=== PATIENT | female | born 1970 | race Caucasian/White ===

== ENCOUNTER 2017-06-25 18:17 | Inpatient (IN) | payer BC, OTHER ==
[~2017-06-25] VITALS: Ht 165.1 cm; Wt 72.5 kg
[2017-06-25 19:16] LABS: URINE APPEARANCE CLEAR (CLEAR); URINE BILIRUBIN NEG (NEG); URINE COLOR YELLOW; URINE NITRITE NEG (NEG); URINE PH 6.5 (4.5-7.5); URINE SPECIFIC GRAVITY 1.007 (1.000-1.030); UROBILINOGEN NEG (NEG); ZZUR CULT IF INDIC CLEAN CATCH YES
[2017-06-25 19:22] LABS: MANUAL MICROSCOPIC REQUIRED? NO; REVIEW REQ? YES
[2017-06-25 19:25] LABS: PREG INTERNAL NEGATIVE QC NEG CLEAR BACKGROUND; PREG INTERNAL POSITIVE QC POS CONTROL LINE
[2017-06-25 19:33] LABS: URINE EPITHELIAL CELL AUTO 0-5 /lpf (0-5)
[2017-06-25 19:42] LABS: BASO % 0.1 %; BASO ABS # 0.01 K/uL (0-0.2); COMPLETE YES; EOS % 0.1 %; HEMATOCRIT 39.3 % (37-47); IG% 0.2 %; LYMPH % 23.9 %; LYMPH ABS # 2.21 K/uL (1.2-3.4); MEAN CORPUSCULAR HEMOGLOBIN 27.6 pg (25-34); MEAN CORPUSCULAR HGB CONC 33.6 g/dl (32-36); MEAN PLATELET VOLUME 10.2 fL (7.4-10.4); MONO % 6.3 %; NEUT % 69.4 %; PLATELET COUNT 277 K/uL (130-400); RED BLOOD COUNT 4.79 M/uL (4.2-5.4); WHITE BLOOD COUNT 9.25 K/uL (4.8-10.8)
[2017-06-25 19:44] LABS: BENZODIAZEPINE, URINE NEG (NEG); COCAINE,URINE NEG (NEG); PHENCYCLIDINE, URINE NEG (NEG)
[2017-06-25 20:04] LABS: BUN/CREATININE RATIO 14.8 (10-20); CALCIUM 9.6 mg/dl (8.5-10.1); CREATININE 0.79 mg/dl (0.60-1.20); POTASSIUM 3.2 mmol/L (3.5-5.1)
[2017-06-25 20:09] LABS: ACETAMINOPHEN < 2 ug/ml (10-30)
[2017-06-25 20:15] LABS: THYROID STIMULATING HORMONE 0.763 uIu/ml (0.300-4.500)
--- NOTE | 2017-06-25 20:30 | EMERGENCY ROOM VISIT NOTE ---
History Report prepared by Kayleigh: Braulio Sosa Under the Supervision of: Dr. Raysa Carl M.D. First contact with patient: 19:23 Chief Complaint: MENTAL HEALTH EVALUATION Stated Complaint: MHID History of Present Illness The patient is a 46 year old female who presents to the Emergency Room for a mental health evaluation. Today, the patient was escorted to ER by the [place] police. Per EMS, the patient was found at a [employer] parking lot. She flagged down someone and asked for help. She was rambling about her hacking her computer and her Facebook account while putting drugs in her drinking water. She also believes that her car dealership is messing with her GPS because it took her to the wrong side of a building. She notes that she is upset with her mother because she deleted her phone messages. She also states that she is having trouble with her . She found strange handwritten messages in her 's computer bag. She asked him about them but he was very defensive and aggressive. She believes that he could be cheating on her. Her brother recommended going to the doctor to get a wellness check. Source of History: patient Onset: Recently Position: other (Global) Symptom Intensity: moderate Quality: other (Mental Health Evaluation) Timing: constant Note: She denies any physical symptoms. She denies any suicidal ideation or homicidal ideation. Review of Systems See HPI for pertinent positives & negatives. A total of 10 systems reviewed and were otherwise negative. Past Medical & Surgical Medical Problems: (1) No Known Active Medical Problems Family History Patient reports no known family medical history. Social History Smoking Status: Never Smoker Smokeless Tobacco Use: No Drug Use: none Marital Status: Housing Status: lives with family Current/Historical Medications No Active Prescriptions or Reported Meds Allergies Coded Allergies: No Known Allergies (Unverified , 06/25/17) Physical Exam Vital Signs Date Time Temp Pulse Resp B/P (MAP) Pulse Ox O2 Delivery O2 Flow Rate FiO2 06/26/17 00:27 36.8 110 18 131/88 06/25/17 22:20 109 18 131/88 97 Room Air 06/25/17 20:17 110 18 128/84 97 Room Air 06/25/17 18:17 36.8 110 18 133/87 95 Room Air Physical Exam Vital signs reviewed. General: Well-appearing female, in no significant distress. HEENT: No scleral icterus, PERRLA, neck supple. Atraumatic. Cardiovascular: Regular rate and rhythm, no extra sounds. Pulmonary: Clear to auscultation bilaterally, normal work of breathing. Abdomen: Soft, nontender, nondistended, positive bowel sounds. Musculoskeletal: Atraumatic, no peripheral edema. Neurologic: Patient awake alert and oriented x 3, full strength in all 4 extremities. Cranial nerves 2 through 12 grossly intact. Skin: Warm, dry, no rash Psychologic: Negative SI and HI. Medical Decision & Procedures Laboratory Results 06/25/17 19:25 Red Blood Count 4.79, Mean Corpuscular Volume 82.0, Mean Corpuscular Hemoglobin 27.6, Mean Corpuscular Hemoglobin Concent 33.6, Mean Platelet Volume 10.2, Neutrophils (%) (Auto) 69.4, Lymphocytes (%) (Auto) 23.9, Monocytes (%) (Auto) 6.3, Eosinophils (%) (Auto) 0.1, Basophils (%) (Auto) 0.1, Neutrophils # (Auto) 6.42, Lymphocytes # (Auto) 2.21, Monocytes # (Auto) 0.58, Eosinophils # (Auto) 0.01, Basophils # (Auto) 0.01 06/25/17 19:25 Test 06/25/17 18:41 06/25/17 19:25 Urine Color YELLOW Urine Appearance CLEAR (CLEAR) Urine pH 6.5 (4.5-7.5) Urine Specific [place] 1.007 (1.000-1.030) Urine Protein NEG (NEG) Urine Glucose (UA) NEG (NEG) Urine Ketones TRACE (NEG) Urine Occult Blood 2+ (NEG) Urine Nitrite NEG (NEG) Urine Bilirubin NEG (NEG) Urine Urobilinogen NEG (NEG) Urine Leukocyte Esterase LARGE (NEG) Urine WBC (Auto) >30 /hpf (0-5) Urine RBC (Auto) 0-4 /hpf (0-4) Urine Hyaline Casts (Auto) /lpf (0-5) Urine Epithelial Cells (Auto) 0-5 /lpf (0-5) Urine Bacteria (Auto) 1+ (NEG) Urine Renal Epithelial Cells 0-5 /lpf (0-5) Urine Test NEG (NEG) Urine Opiates Screen NEG (NEG) Urine Methadone, Qualitative NEG (NEG) Urine Barbiturates NEG (NEG) Urine Phencyclidine (PCP) Level NEG (NEG) Ur Amphetamine/Methamphetamine NEG (NEG) MDMA (Ecstasy) Screen NEG (NEG) Urine Benzodiazepines Screen NEG (NEG) Urine Cocaine Metabolite NEG (NEG) Urine Marijuana (THC) NEG (NEG) White Blood Count 9.25 K/uL (4.8-10.8) Red Blood Count 4.79 M/uL (4.2-5.4) Hemoglobin 13.2 g/dL (12.0-16.0) Hematocrit 39.3 % (37-47) Mean Corpuscular Volume 82.0 fL (80-100) Mean Corpuscular Hemoglobin 27.6 pg (25-34) Mean Corpuscular Hemoglobin Concent 33.6 g/dl (32-36) Platelet Count 277 K/uL (130-400) Mean Platelet Volume 10.2 fL (7.4-10.4) Neutrophils (%) (Auto) 69.4 % Lymphocytes (%) (Auto) 23.9 % Monocytes (%) (Auto) 6.3 % Eosinophils (%) (Auto) 0.1 % Basophils (%) (Auto) 0.1 % Neutrophils # (Auto) 6.42 K/uL (1.4-6.5) Lymphocytes # (Auto) 2.21 K/uL (1.2-3.4) Monocytes # (Auto) 0.58 K/uL (0.11-0.59) Eosinophils # (Auto) 0.01 K/uL (0-0.5) Basophils # (Auto) 0.01 K/uL (0-0.2) RDW Standard Deviation 39.2 fL (36.4-46.3) RDW Coefficient of Variation 13.0 % (11.5-14.5) Immature Granulocyte % (Auto) 0.2 % Immature Granulocyte # (Auto) 0.02 K/uL (0.00-0.02) Anion Gap 9.0 mmol/L (3-11) Est Creatinine Clear Calc Drug Dose 80.1 ml/min Estimated GFR () 104.0 Estimated GFR (Non- 89.8 BUN/Creatinine Ratio 14.8 (10-20) Calcium Level 9.6 mg/dl (8.5-10.1) Total Bilirubin 0.5 mg/dl (0.2-1) Aspartate Amino Transf (AST/SGOT) 32 U/L (15-37) Alanine Aminotransferase (ALT/SGPT) 31 U/L (12-78) Alkaline Phosphatase 68 U/L (45-117) Total Protein 7.9 gm/dl (6.4-8.2) Albumin 4.0 gm/dl (3.4-5.0) Globulin 3.9 gm/dl (2.5-4.0) Albumin/Globulin Ratio 1.0 (0.9-2) Thyroid Stimulating Hormone (TSH) 0.763 uIu/ml (0.300-4.500) Salicylates Level < 1.7 mg/dl (2.8-20) Acetaminophen Level < 2 ug/ml (10-30) Ethyl Alcohol mg/dL < 3.0 mg/dl (0-3) Laboratory results per my review. ED Course 1922: Past medical records reviewed. The patient was evaluated in room A7. A complete history and physical examination was performed. 5: Ordered Rocephin Im 1000 mg IM 2318: A 302 petition will be filled out for the patient. She is awaiting definitive placement into a mental health facility. She will be transferred afterward. Medical Decision Differential diagnosis: Etiologies such as mood disorder, infection, hypoglycemia, electrolyte abnormalities, cardiac sources, intracerebral event, toxicologic, neurologic, as well as others were entertained. This patient was evaluated and appeared to be in no significant distress. Patient is distraught and feels that she is being poisoned. She feels as though "someone smarter than she is" is hacking into her social media. She feels her , daughter and sisters are conspiring against her. The patient is not able to state a motivation. He was medically cleared. She is found to have a UTI for which she is refusing antibiotic treatment. The patient is unable to care for herself or make clear decisions. I do not feel she is competent to sign in voluntarily. She has been offered a voluntary admission by mental health staff however she adamantly refuses. She states she was only here so that we could be the "detectives." She refuses any contact with her family members by staff. The patient is currently unable to safety plan. The case was reviewed with Dr. Aly of psychiatry who has accepted the patient to 3 S. A 302 petitioning statement has been submitted by myself as the nursing staff is considered insufficient. A two physician 302 was completed. Medication Reconcilliation Current Medication List: was personally reviewed by me Blood Pressure Screening Patient's blood pressure: Normal blood pressure Blood pressure disposition: Did not require urgent referral Impression Primary Impression: Psychosis Additional Impression: UTI (urinary tract infection) Scribe Attestation The scribe's documentation has been prepared under my direction and personally reviewed by me in its entirety. I confirm that the note above accurately reflects all work, treatment, procedures, and medical decision making performed by me. Departure Information Dispostion Mental Health Acute Care Prescriptions No Active Prescriptions or Reported Meds Referrals No Doctor, Assigned (PCP) Forms HOME CARE DOCUMENTATION FORM, IMPORTANT VISIT INFORMATION Patient Instructions My [facility] Problem Qualifiers
[2017-06-25] MEDS: CEFTRIAXONE SOD 350MG/ML 1 GM VIAL IM ONE ×2 (22:45→22:50)
[2017-06-26] MEDS ORDERED: NURSING VERBAL MED ORDER ONE (00:15)
[2017-06-26 00:27] VITALS: BP 131/88; PULSE 110; TEMP 36.8; Ht 165.1 cm; Wt 72.5 kg
[2017-06-26 02:56] VITALS: O2SAT 98
[2017-06-26] MEDS ORDERED: LORAZEPAM 1 MG TAB PO PRN ×2 (03:30→13:15)
[2017-06-26] MEDS ORDERED: SODIUM CHLORIDE 0.65% NA SOLN 45 ML (OCEAN) PRN (03:30)
[2017-06-26] MEDS ORDERED: ACETAMINOPHEN 325 MG TAB PO PRN (03:30)
[2017-06-26] MEDS ORDERED: ALUMINUM/MAGNESIUM SUSP 30 ML UDC PO PRN (03:30)
[2017-06-26] MEDS ORDERED: BISMUTH SUBSALICYLATE PER ML OMNICELL CHARGE PO PRN (03:30)
[2017-06-26] MEDS ORDERED: MAGNESIUM HYDROXIDE SUSP 30 ML UDC PO PRN (03:30)
[2017-06-26] MEDS ORDERED: hydrOXYzine HCL 25 MG TAB PO PRN ×2 (03:30)
[2017-06-26 06:59] VITALS: BP_SYST 115; BP_SYST 118; BP_DIAS 71; BP_DIAS 78; PULSE 71; PULSE 73; TEMP 36.8
[2017-06-26] MEDS ORDERED: SULFAMETHOXAZOLE/TRIMETHOPRIM DS 800/160MG TAB PO ONE (11:30)
--- NOTE | 2017-06-26 12:10 | Psychiatric History & Physical ---
History Date of Service Jun 26, 2017. Identifying Data Svitlana Trevizo is a 46-year-old female who resides in [place] with her , who was brought to the emergency room by police after having been found in the parking lot of [employer] [facility] distressed, fearful and making paranoid statements. The patient is admitted on a 302 involuntary commitment. Information is gathered from the patient, the electronic medical record, and considered to be reliable. Chief Complaint Paranoia History of Present Illness The patient is a 46-year-old woman, originally from [place], currently residing in [place] with her who is a analytical scientist and [place]. She denies any mental health history or medical concerns. She was brought to the emergency room yesterday by police when she was found in the parking lot outside of [place] [employer] [place], hysterical, and paranoid, making statements about her GPS having been altered and her poisoning her water. Today she is a very difficult historian. She is quite persistent in wanting to present her story in her own time and way. She is mildly tangential but does respond to redirection. She talks about having come to the [place] at the age of 20 or 21 through an arranged marriage. She her , had 2 children by the age of 23. He encouraged her to take additional educational classes but she did not feel that she could do so with 2 small children. She was also raised in a family that discouraged further education for women seeing their role is that of mother and . She feels that she has had a very good relationship with her and they have built a good life together. More recently, she indicates that she has been seeing things in her surroundings that indicate to her that he is having some kind of illicit relationship with one of her cousins. She talks about his cell phone, seeing that contact information for her cousins is on his phone when he tells her he has no contact with him. She cannot reconcile this. She also believes that she has seen Post-it notes in his computer bag with words that indicate to her that he is trying to create a "gap" between she and her family and trying to have that "resonate" with other members of the family. She feels that she has been estranged from her family by virtue of being in this area when all of her [place] relatives are in [place]. She feels that there was a "gap" created between she and her brother after he came to the [facility] to study. She believes these are all magnified currently and extends this paranoia to include her sister, parents and his relatives. 2 days ago, she describes having found the notes in his computer bag, confronting him with them and he became extremely angry and pushed her away. He then proceeded to take her cell phone and record to her computers because he did not want her to continue to upset herself with this electronic information. She felt that that was very unfair. She talked with her brother who encouraged her to get a wellness check from her physician to make sure her mental health was good. She apparently went to her physician's office which may be opposite [address], to see if she could get a walk- in appointment. There were no immediate appointments available and they attempted to give her an appointment for the next day which she refused. She asked to see previous reports from her last visit and upon receiving those, she began to object/become paranoid about the information and wanted to see the physician who wrote it so that she could have it deleted from her record. She would not be more specific than that. According to the emergency department notes, she was brought in by police who were called after the patient flagged down a passerby to say that she was being poisoned by her and that he had hacked her computer. Today she remains quite paranoid without any insight at all, not believing that her thoughts are distorted in any way. After a lengthy conversation, she is willing for me to call her in her presence to let him know she is in the hospital and to invite him in for a meeting. She wants to strictly control the kind of information that is relayed. We called him together, he is willing to come right to the hospital for [place] and will be here at approximately one hour. She would like to meet with him before they meet with the social media campaign manager. At this time a review of psychiatric symptoms is not pursued due to the patient's inability to focus on these and her paranoia. Past Psychiatric History Current OP Treatment: no current treatment Prior OP Treatment: no prior treatment Prior Psych Hospitalizations: none Access to a Gun: No Suicide Attempts: No Past Medication Trials none Allergies Allergies: Coded Allergies: No Known Allergies (Unverified , 06/25/17) Home Medications No Active Prescriptions or Reported Meds Family History Patient reports no known family medical history. 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 Relationship History: Children: 2 adult Spiritual Affiliation: Taoist Legal History: none Review of Systems Constitutional: denies no symptoms reported, denies see HPI, denies chills, denies diaphoresis, denies fever, denies malaise, denies weakness, denies other Eyes: denies: no symptoms, as stated in HPI, eye pain, tearing, itching, redness, discharge, double vision, visual changes, blurred vision, photophobia, other ENT: denies: no symptoms reported, see HPI, ear pain, ear discharge, loss of hearing, tinnitus, nasal pain, nasal congestion, rhinorrhea, epistaxis, sore throat, stidor, throat swelling, mouth pain, mouth swelling, dental pain, gum swelling, other Cardiovascular: denies: no symptoms reported, see HPI, chest pain, chest tightness, chest pressure, diaphoresis, palpitations, syncope, other Respiratory: denies: no symptoms reported, see HPI, cough, orthopnea, short of breath, stridor, wheezing, sputum production, cyanosis, BLOOD, PND, other Genitourinary - Female: reports: other (urinary incontinence) Musculoskeletal: denies no symptoms reported, denies see HPI, denies back pain , denies gout, denies joint pain, denies joint swelling, denies muscle pain, denies muscle stiffness, denies neck pain, denies other Integumentary: denies no symptoms reported, denies see HPI, denies change in color, denies change in hair/nails, denies dryness, denies lesions, denies lumps , denies rash, denies other Neurologic: denies: no symptoms, see HPI, headache, numbness, paresthesias, pre -existing deficit, seizure, tingling, tremors, general weakness, tics, focal weakness, vertigo, lethargy, memory loss, dizziness, other Endocrine: denies: no symptoms, as stated in HPI, cold intolerance, heat intolerance, hair changes, goiter, polydipsia, polyuria, skin changes, other Hematologic / Lymphatic: denies: no symptoms, as stated in HPI, abnormal clotting, adenopathy, anemia, easy bleeding, easy bruising, gums bleeding, petechiae, other Examination Physical Examination Exam performed by Dr. Carl in the emergency room has been reviewed and accepted his medical clearance for our unit Vital Signs Vital Signs Past 12 Hours Date Time Temp Pulse Resp B/P (MAP) Pulse Ox O2 Delivery O2 Flow Rate FiO2 06/26/17 06:59 36.8 71 16 115/78 73 118/71 06/26/17 02:56 74 16 139/77 98 Room Air 06/26/17 00:27 36.8 110 18 131/88 Laboratory Results Last 24 Hours Test 06/25/17 18:41 06/25/17 19:25 Urine Color YELLOW Urine Appearance CLEAR Urine pH 6.5 Urine Specific [place] 1.007 Urine Protein NEG Urine Glucose (UA) NEG Urine Ketones TRACE Urine Occult Blood 2+ Urine Nitrite NEG Urine Bilirubin NEG Urine Urobilinogen NEG Urine Leukocyte Esterase LARGE Urine WBC (Auto) >30 /hpf Urine RBC (Auto) 0-4 /hpf Urine Hyaline Casts (Auto) /lpf Urine Epithelial Cells (Auto) 0-5 /lpf Urine Bacteria (Auto) 1+ Urine Renal Epithelial Cells 0-5 /lpf Urine Test NEG Urine Opiates Screen NEG Urine Methadone, Qualitative NEG Urine Barbiturates NEG Urine Phencyclidine (PCP) Level NEG Ur Amphetamine/Methamphetamine NEG MDMA (Ecstasy) Screen NEG Urine Benzodiazepines Screen NEG Urine Cocaine Metabolite NEG Urine Marijuana (THC) NEG White Blood Count 9.25 K/uL Red Blood Count 4.79 M/uL Hemoglobin 13.2 g/dL Hematocrit 39.3 % Mean Corpuscular Volume 82.0 fL Mean Corpuscular Hemoglobin 27.6 pg Mean Corpuscular Hemoglobin Concent 33.6 g/dl Platelet Count 277 K/uL Mean Platelet Volume 10.2 fL Neutrophils (%) (Auto) 69.4 % Lymphocytes (%) (Auto) 23.9 % Monocytes (%) (Auto) 6.3 % Eosinophils (%) (Auto) 0.1 % Basophils (%) (Auto) 0.1 % Neutrophils # (Auto) 6.42 K/uL Lymphocytes # (Auto) 2.21 K/uL Monocytes # (Auto) 0.58 K/uL Eosinophils # (Auto) 0.01 K/uL Basophils # (Auto) 0.01 K/uL RDW Standard Deviation 39.2 fL RDW Coefficient of Variation 13.0 % Immature Granulocyte % (Auto) 0.2 % Immature Granulocyte # (Auto) 0.02 K/uL Sodium Level 140 mmol/L Potassium Level 3.2 mmol/L Chloride Level 107 mmol/L Carbon Dioxide Level 24 mmol/L Anion Gap 9.0 mmol/L Blood Urea Nitrogen 12 mg/dl Creatinine 0.79 mg/dl Est Creatinine Clear Calc Drug Dose 80.1 ml/min Estimated GFR () 104.0 Estimated GFR (Non- 89.8 BUN/Creatinine Ratio 14.8 Random Glucose 95 mg/dl Calcium Level 9.6 mg/dl Total Bilirubin 0.5 mg/dl Aspartate Amino Transf (AST/SGOT) 32 U/L Alanine Aminotransferase (ALT/SGPT) 31 U/L Alkaline Phosphatase 68 U/L Total Protein 7.9 gm/dl Albumin 4.0 gm/dl Globulin 3.9 gm/dl Albumin/Globulin Ratio 1.0 Thyroid Stimulating Hormone (TSH) 0.763 uIu/ml Salicylates Level < 1.7 mg/dl Acetaminophen Level < 2 ug/ml Ethyl Alcohol mg/dL < 3.0 mg/dl Mental Examination During interview pt is: alert and oriented Appearance: appropriately dressed, appropriately groomed Eye contact is: good Motor behavior is: no abnormal motor movements Speech: other (rapid but not pressured) Affect: other (distressed) Mood is: anxious Thought process: tangential Thought content: reality based without delusions Suicidal thought are: denied Homicidal thoughts are: denied Hallucinations: denies auditory, denies visual Cognition: memory grossly intact, attention grossly intact, language grossly intact Intelligence estimated to be: average Insight: severely impaired Judgement: severely impaired Impression / Recommendations Impression 46-year-old woman, admitted involuntarily with apparent paranoia. Her did arrive on the unit and provided some information to the social media campaign manager that this is first time this has ever happened, that she has never had a mental health history. She is clearly paranoid, misinterpreting stimuli in her environment. She is refusing to take medications saying there is nothing wrong with her thinking that it is her 's problem. We will continue to try to get information from the . At this point she has not aggressive or in any way in need of immediate medications over objection however we will continue to gather information toward the need for further inpatient treatment on a 303 and consider medications over objection at that time. I will order when necessary medications of Risperdal M tab 1 mg 3 times a day in the event she is willing to take something as well as some Ativan 1 mg every 4 hours when necessary for any agitation or anxiety that she may feel. Inventory Assets Strengths: Love of her family, good health Needs: To abide by treatment recommendations Risk Factors Assessment : No /single/: No Higher / Fall in social status: No Access to guns: No Health problems: No Mental Health Diagnoses: No Substance use disorders: No Previous attempt: No Previous psychiatric stay: No Smoker: No Protective Factors Assessment Moravian beliefs: Yes : Yes Responsible for young children: No Employed: No Stable relationships: No Supportive family: Yes Recommendations (1) Psychosis 06/26 -The patient is refusing medications at this time - Here on a 303. Will continue to gather information toward the need for further inpatient treatment on a 303 and consider medications over objection at that time - Every 15 minute checks for safety - Family meeting with her - Encourage participation in groups and individual counseling as tolerated - The patient will need psychiatric follow-up - Risperdal M tab 1 mg 3 times a day when necessary psychosis - Ativan 1 mg every 4 hours when necessary agitation associated with psychosis (2) UTI (urinary tract infection) 06/26 - Start Bactrim DS S one tab twice a day 5 days, we will adjust pending sensitivity - Encourage fluids Has been reviewed with Dr. Sintia morales CPT Code Initial Hospital Care: [id number]
[2017-06-26] MEDS ORDERED: RISPERIDONE ODT 1MG PO PRN (13:15)
[2017-06-26] MEDS: SULFAMETHOXAZOLE/TRIMETHOPRIM DS 800/160MG TAB PO SCH (21:00)
[2017-06-27 06:11] VITALS: BP_SYST 116; BP_SYST 121; BP_DIAS 78; BP_DIAS 80; PULSE 75; PULSE 80; TEMP 36.5
[2017-06-27] MEDS: SULFAMETHOXAZOLE/TRIMETHOPRIM DS 800/160MG TAB PO SCH ×2 (08:50→21:39)
--- NOTE | 2017-06-27 17:59 | Psychiatric Progress Notes ---
Progress Note Date of Service Jun 27, 2017. Chief Complaint "I need my to talk to you, I need my to be able to sleep". Subjective Patient was seen & assessed interval progress reviewed with nursing. Pt exibiting issues with organziation. At firsti ndicated needing [facility] present ot talk to television script writer. Vincent offered to wait till [facility] (as he was expected to come) with pt shortly changing mind and wanting to talk to television script writer at that moment. She indicated that she tlaked to recently (earlier this morning it appears) andshe asked him questions and ready him her thoughts and she felt more reassured that he was committed to her and faithful to her. She is indicating that she can view her issue with the GPS as a glitch in the GPS as opposed to it being hacked. She views her being in the hospital as tied ot a mistake and "that she is not (should not be - most likely) a patient/does not have have mental health concerns." She wants marriage counseling as an outpt. She wants her to remarry her to ensure his faithfulness and to prevent him from going to other women. She appears ot have weariness and probable paranoid thinking towards a certain woman. She describes others in the family that are negative and causing problems and leading her to paranoid thinking with and children encouraging her to disconnect from facebook and those that are negative. near end of afternoon visiting hours television script writer did see and other visitors with pt and interacted with them. is preferring her to be discharge as soon as reasonable and feels that being at home and with loved ones support she would improve. He is feeling that medication treatment is needed She indicates that she cannot sleep in the hospital over her not being here. only 2 hours of sleep last night per staff and meals have fluctuated from 0 to 50% to 100% . She rescinded her JOVON with while also wanting staff and television script writer to talk to him. Review of Systems Constitutional: + problem reported (lack of sleep) Respiratory: + cough, + sputum, + wheezing, + shortness of breath, + dyspnea on exertion, + dyspnea at rest, + hemoptysis, + problem reported Cardiovascular: No chest pain, No orthopnea, No PND, No edema, No claudication , No palpitations, No problem reported Abdomen: No pain, No nausea, No vomiting, No diarrhea, No constipation, No GI bleeding, No problem reported Musculoskeletal: No joint pain, No muscle pain, No swelling, No calf pain, No problem reported Psychiatric: + problem reported (pt denied all symptoms but is having disoregniazation and paranoid thinking) Sleep Information Total Hours of Sleep: 2.00 Meal Information Percent of Breakfast Consumed: 100 Percent of Lunch Consumed: 0 Percent of Dinner Consumed: 50 Mental Status Exam During interview pt is: alert and oriented Appearance: appropriately dressed, appropriately groomed Eye contact is: good Motor behavior is: no abnormal motor movements Speech: other (rapid but not pressured) Affect: other (some distress at times, anxious otherwise) Mood is: anxious Thought process: tangential, perseveration (on not needing to be here and needing and needing reassurance of 's committment to her) Thought content: reality based without delusions (with some paranoid aspects to thought process, pt has imrpoved reality testing and without delusional material) Suicidal thought are: denied Homicidal thoughts are: denied Hallucinations: denies auditory, denies visual Cognition: memory grossly intact, attention grossly intact, language grossly intact Intelligence estimated to be: average Insight: severely impaired Judgement: severely impaired Impression 46-year-old [place] woman, admitted involuntarily with apparent paranoia. Her did arrive on the unit and provided some information to the director of social work that this is first time this has ever happened, that she has never had a mental health history. She is clearly paranoid, misinterpreting stimuli in her environment. She is refusing to take medications saying there is nothing wrong with her thinking that it is her 's problem. We will continue to try to get information from the . At this point she has not aggressive or in any way in need of immediate medications over objection however we will continue to gather information toward the need for further inpatient treatment on a 303 and consider medications over objection at that time. I will order when necessary medications of Risperdal M tab 1 mg 3 times a day in the event she is willing to take something as well as some Ativan 1 mg every 4 hours when necessary for any agitation or anxiety that she may feel. Plan (1) Psychosis 06/26 -The patient is refusing medications at this time - Here on a 303. Will continue to gather information toward the need for further inpatient treatment on a 303 and consider medications over objection at that time - Every 15 minute checks for safety - Family meeting with her - Encourage participation in groups and individual counseling as tolerated - The patient will need psychiatric follow-up - Risperdal M tab 1 mg 3 times a day when necessary psychosis - Ativan 1 mg every 4 hours when necessary agitation associated with psychosis 06/27 - maintained treatment plan, pt presentation is still with disorganization but reality testing is improving and some improvement to organization, does handle family visits well and not expressing delusional concerns about and seeming to respond to family direction well during visit. sleep extremely limited and eating has really varied. exploring need for 303 , however family is feeling comfortable with a discharge plan and would strongly prefer that and pt has not obtained prn risperdal (2) UTI (urinary tract infection) 06/26 - Start Bactrim DS S one tab twice a day 5 days, we will adjust pending sensitivity - Encourage fluids Has been reviewed with Dr. Sintia morales Discharge / Aftercare Planning Primary Care Physician: Name: n/a Therapist: Name: n/a Cosmetics Presser: Name: n/a Visit Code E&M Code: 41758 Inventory Assets Strengths: Love of her family, good health Needs: To abide by treatment recommendations Risk Factors Assessment : No /single/: No Higher / Fall in social status: No Health problems: No Mental Health Diagnoses: No Substance use disorders: No Previous attempt: No Previous psychiatric stay: No Smoker: No Protective Factors Assessment Christian beliefs: Yes : Yes Responsible for young children: No Employed: No Stable relationships: No Supportive family: Yes Data Vital Signs Last 24 Hrs: Date Time Temp Pulse Resp B/P (MAP) Pulse Ox O2 Delivery O2 Flow Rate FiO2 06/27/17 06:11 36.5 75 16 121/78 80 116/80 Meds Administered Last 24 Hrs: Meds Administered (Past 24Hrs) Medications (Trade) Dose Ordered Sig/Day Route Start Time Stop Time Status Last Admin Dose Admin Trimethoprim/ Sulfamethoxazole (Septra Ds 800/ 160MG Tab) 1 tab Q12 PO 06/26/17 21:00 07/01/17 21:00 06/27/17 08:50 1 TAB Trimethoprim/ Sulfamethoxazole (Septra Ds 800/ 160MG Tab) 1 tab 1130 ONCE PO 06/26/17 11:30 06/26/17 11:31 DC 06/26/17 11:32 1 TAB
[2017-06-28 07:05] VITALS: BP_SYST 104; BP_SYST 120; BP_DIAS 75; BP_DIAS 82; PULSE 81; PULSE 98; TEMP 36.4
[2017-06-28] MEDS: SULFAMETHOXAZOLE/TRIMETHOPRIM DS 800/160MG TAB PO SCH ×2 (12:19→20:49)
--- NOTE | 2017-06-28 18:47 | Psychiatric Progress Notes ---
Progress Note Date of Service Jun 28, 2017. Chief Complaint "I am glad to be here, I do not trust my , I am organized, I am not paranoid". Subjective Patient was seen & assessed interval progress reviewed with nursing, assessed pt in morning and spoke to pt with daughter present at her request in late afternoon. Pt in morning was with pressured speech and poro boundaries and exhibiting paranoid delusional thinking, indicating not trusting concerned about being poisoned by her clothes (daughter's company working on infusing medicines into fabric with daughter indicating this as well). Pt wants documentation writer to investigate and car dealership that got the car since she believes something fishy is going on with and also the GPS. She does not believe the GPS issue was a glitch per report this morning. Later in afternoon she became concerned about her Throat turning blue and burning and weary its the Bactrim. Reassurance of nl throat did not settle her down Pt was more calm and contained and without pressured speech when documentation writer spoke to her in front of daughter. Daughter appears to be searching for rationalizing answers for pt's presentation taking likely aggravating factors as the full scope of the issue. and daughter feel that pt would be more organized and calmer at home. Pt wants martial counseling. pt also eating food brought in by family on top of report eating. pt slept well last night Review of Systems Constitutional: No fever, No chills, No sweats, No weight loss, No weakness, No fatigue, No problem reported ENT: + problem reported (burning thorat, cough up some saliva in afternoon ) Respiratory: No cough, No sputum, No wheezing, No shortness of breath, No dyspnea on exertion, No dyspnea at rest, No hemoptysis, No problem reported Cardiovascular: No chest pain, No orthopnea, No PND, No edema, No claudication , No palpitations, No problem reported Abdomen: No pain, No nausea, No vomiting, No diarrhea, No constipation, No GI bleeding, No problem reported Musculoskeletal: No joint pain, No muscle pain, No swelling, No calf pain, No problem reported Medication Side Effects: being treated for UTI Sleep Information Total Hours of Sleep: 7.75 Meal Information Percent of Breakfast Consumed: 100 Percent of Lunch Consumed: 0 Percent of Dinner Consumed: 100 Mental Status Exam During interview pt is: alert and oriented Appearance: appropriately dressed, appropriately groomed Eye contact is: good Motor behavior is: no abnormal motor movements Speech: other (rapid but not pressured) Affect: other (some distress at times, anxious otherwise) Mood is: anxious Thought process: tangential, perseveration (on not needing to be here and needing and needing reassurance of 's committment to her) Thought content: reality based without delusions (with some paranoid aspects to thought process, pt has imrpoved reality testing and without delusional material) Suicidal thought are: denied Homicidal thoughts are: denied Hallucinations: denies auditory, denies visual Cognition: memory grossly intact, attention grossly intact, language grossly intact Intelligence estimated to be: average Insight: severely impaired Judgement: severely impaired Impression 46-year-old woman, admitted involuntarily with apparent paranoia. Her did arrive on the unit and provided some information to the school social worker that this is first time this has ever happened, that she has never had a mental health history. She is clearly paranoid, misinterpreting stimuli in her environment. She is refusing to take medications saying there is nothing wrong with her thinking that it is her 's problem. We will continue to try to get information from the . At this point she has not aggressive or in any way in need of immediate medications over objection however we will continue to gather information toward the need for further inpatient treatment on a 303 and consider medications over objection at that time. I will order when necessary medications of Risperdal M tab 1 mg 3 times a day in the event she is willing to take something as well as some Ativan 1 mg every 4 hours when necessary for any agitation or anxiety that she may feel. Plan (1) Psychosis 06/26 -The patient is refusing medications at this time - Here on a 303. Will continue to gather information toward the need for further inpatient treatment on a 303 and consider medications over objection at that time - Every 15 minute checks for safety - Family meeting with her - Encourage participation in groups and individual counseling as tolerated - The patient will need psychiatric follow-up - Risperdal M tab 1 mg 3 times a day when necessary psychosis - Ativan 1 mg every 4 hours when necessary agitation associated with psychosis 06/27 - maintained treatment plan, pt presentation is still with disorganization but reality testing is improving and some improvement to organization, does handle family visits well and not expressing delusional concerns about and seeming to respond to family direction well during visit. sleep extremely limited and eating has really varied. exploring need for 303 , however family is feeling comfortable with a discharge plan and would strongly prefer that and pt has not obtained prn risperdal 06/28 - family continues to aim for a quick discharge and that they feel pt is appropriate for discharge despite pt's various paranoid concerns that pt is lacking insight to. pt behavior more settled and calmer with family present then when on unit without family. more concerns about being poisoned and about needed to be investigated today, states does not trust hsuband to documentation writer and to daughter however behaviors and presentation appropriate when on unit . (2) UTI (urinary tract infection) 06/26 - Start Bactrim DS S one tab twice a day 5 days, we will adjust pending sensitivity - Encourage fluids Has been reviewed with Dr. Sintia morales Discharge / Aftercare Planning Primary Care Physician: Name: n/a Therapist: Name: n/a Concrete Block Layer: Name: n/a Visit Code E&M Code: 77830 Inventory Assets Strengths: Love of her family, good health Needs: To abide by treatment recommendations Risk Factors Assessment : No /single/: No Higher / Fall in social status: No Health problems: No Mental Health Diagnoses: No Substance use disorders: No Previous attempt: No Previous psychiatric stay: No Smoker: No Protective Factors Assessment Roman Catholic beliefs: Yes : Yes Responsible for young children: No Employed: No Stable relationships: No Supportive family: Yes Data Vital Signs Last 24 Hrs: Date Time Temp Pulse Resp B/P (MAP) Pulse Ox O2 Delivery O2 Flow Rate FiO2 06/28/17 07:05 36.4 81 16 120/82 98 104/75 Meds Administered Last 24 Hrs: Meds Administered (Past 24Hrs) Medications (Trade) Dose Ordered Sig/Day Route Start Time Stop Time Status Last Admin Dose Admin Trimethoprim/ Sulfamethoxazole (Septra Ds 800/ 160MG Tab) 1 tab Q12 PO 06/26/17 21:00 07/01/17 21:00 06/28/17 12:19 1 TAB
[2017-06-29 06:55] VITALS: BP_SYST 102; BP_SYST 106; BP_DIAS 57; BP_DIAS 64; PULSE 84; PULSE 88; TEMP 36.8
[2017-06-29] MEDS: SULFAMETHOXAZOLE/TRIMETHOPRIM DS 800/160MG TAB PO SCH (08:37)
--- NOTE | 2017-06-29 10:59 | Discharge Instructions ---
Discharge Information Report Includes Report will include the: Discharge Instructions & Summary Admission Admission Date / Time: Jun 26, 2017 at 00:11 Reason for Admission: Unspecified Psychosis Discharge Discharge Diagnosis / Problem: Paranoia Condition at Discharge: Fair Discharge Goals Goal(s): Decrease discomfort, Improve disease control Activity Recommendations Activity Limitations: resume your previous activity . Instructions / Follow-Up Instructions / Follow-Up . SPECIAL CARE INSTRUCTIONS: 1. Follow through with your scheduled aftercare appointments. If unable to keep an appointment, please call to reschedule. 2. Take your medication only as prescribed. Medication should not be changed or stopped without the approval of your doctor. In the event of worsening symptoms or concerns about side effects, contact your doctor immediately. 3. Utilize new healthy coping skills, anger management skills, and stress management skills learned during your hospitalization. Journal feelings and process them with a support person. Identify stressors or situations that may result in relapse, deterioration or inappropriate behaviors and develop a plan to deal with those issues. 4. If your coping skills are ineffective and you are in crisis, contact your outpatient providers for direction. If unable to reach your providers, please call the CAN HELP LINE AT or go to the closest Emergency Room. 5. Avoid alcohol and un-prescribed drugs. 6. You have been provided with the Mental Health Advance Directives Pamphlet for your review. AFTERCARE APPOINTMENTS: * Please call your insurance company prior to your scheduled appointment to confirm your aftercare providers are covered. Take your insurance information to your appointments. . Discharge / Aftercare Planning Primary Care Physician: Name: states that she does not have a PCP Psychiatrist: Name: Refusing aftercare Therapist: Name Of Therapist: [facility], [address] [place] [address], [address] Date of Appointment: Jul 13, 2017 Time of Appointment: 6pm Gear Tester: Name: n/a . Follow-Up Care Plan for Follow-Up Care: The patient will see therapist Fabio Eugene and is refusing to see a psychiatrist Current Hospital Diet Patient's current hospital diet: Regular Diet, Vegetarian Diet Discharge Diet Recommended Diet: Regular Diet Procedures Procedures Performed: No Pending Studies Pending Studies at Discharge: No Medical Emergencies . Who to Call and When: Medical Emergencies: For questions or emergencies related to your hospital stay, please contact the Inpatient Behavioral Health Unit at [phone]. A fashion illustrator is on-call 27/04 for the Behavioral Health Unit for emergencies At any time you feel your situation is an emergency, you may also call 911 immediately. . Non-Emergent Contact Non-Emergency issues call your: Primary Care Provider, Psychiatrist, Therapist Past History Medical & Surgical History: (1) UTI (urinary tract infection) Advance Directives Existing Advance Directive: No Do You Have an Existing Mental: No Existing Living Will: No Existing Power of Reinforcing Metal Worker: No The Person Making Decisions: unknown- pt too psychotic to answer Advance Directives Info Given: To Pt/S.O. Advance Directives Reason: Declines as Mental Health Visit. Discharge Summary Admission HPI Per the Admitting provider: The patient is a 46-year-old woman, originally from [facility], currently residing in [place] with her who is a product development scientist and [place]. She denies any mental health history or medical concerns. She was brought to the emergency room yesterday by police when she was found in the parking lot outside of [place], hysterical, and paranoid, making statements about her GPS having been altered and her poisoning her water. Today she is a very difficult historian. She is quite persistent in wanting to present her story in her own time and way. She is mildly tangential but does respond to redirection. She talks about having come to the [place] at the age of 20 or 21 through an arranged marriage. She her , had 2 children by the age of 23. He encouraged her to take additional educational classes but she did not feel that she could do so with 2 small children. She was also raised in a family that discouraged further education for women seeing their role is that of mother and . She feels that she has had a very good relationship with her and they have built a good life together. More recently, she indicates that she has been seeing things in her surroundings that indicate to her that he is having some kind of illicit relationship with one of her cousins. She talks about his cell phone, seeing that contact information for her cousins is on his phone when he tells her he has no contact with him. She cannot reconcile this. She also believes that she has seen Post-it notes in his computer bag with words that indicate to her that he is trying to create a "gap" between she and her family and trying to have that "resonate" with other members of the family. She feels that she has been estranged from her family by virtue of being in this area when all of her [place] relatives are in [place]. She feels that there was a "gap" created between she and her brother after he came to the [facility] to study. She believes these are all magnified currently and extends this paranoia to include her sister, parents and his relatives. 2 days ago, she describes having found the notes in his computer bag, confronting him with them and he became extremely angry and pushed her away. He then proceeded to take her cell phone and record to her computers because he did not want her to continue to upset herself with this electronic information. She felt that that was very unfair. She talked with her brother who encouraged her to get a wellness check from her physician to make sure her mental health was good. She apparently went to her physician's office which may be opposite [address], to see if she could get a walk- in appointment. There were no immediate appointments available and they attempted to give her an appointment for the next day which she refused. She asked to see previous reports from her last visit and upon receiving those, she began to object/become paranoid about the information and wanted to see the physician who wrote it so that she could have it deleted from her record. She would not be more specific than that. According to the emergency department notes, she was brought in by police who were called after the patient flagged down a passerby to say that she was being poisoned by her and that he had hacked her computer. Today she remains quite paranoid without any insight at all, not believing that her thoughts are distorted in any way. After a lengthy conversation, she is willing for me to call her in her presence to let him know she is in the hospital and to invite him in for a meeting. She wants to strictly control the kind of information that is relayed. We called him together, he is willing to come right to the hospital for [place] and will be here at approximately one hour. She would like to meet with him before they meet with the social insurance administrator. At this time a review of psychiatric symptoms is not pursued due to the patient's inability to focus on these and her paranoia. Hospital Course (1) Psychosis 06/26 -The patient is refusing medications at this time - Here on a 303. Will continue to gather information toward the need for further inpatient treatment on a 303 and consider medications over objection at that time - Every 15 minute checks for safety - Family meeting with her - Encourage participation in groups and individual counseling as tolerated - The patient will need psychiatric follow-up - Risperdal M tab 1 mg 3 times a day when necessary psychosis - Ativan 1 mg every 4 hours when necessary agitation associated with psychosis 06/27 - maintained treatment plan, pt presentation is still with disorganization but reality testing is improving and some improvement to organization, does handle family visits well and not expressing delusional concerns about and seeming to respond to family direction well during visit. sleep extremely limited and eating has really varied. exploring need for 303 , however family is feeling comfortable with a discharge plan and would strongly prefer that and pt has not obtained prn risperdal 06/28 - family continues to aim for a quick discharge and that they feel pt is appropriate for discharge despite pt's various paranoid concerns that pt is lacking insight to. pt behavior more settled and calmer with family present then when on unit without family. more concerns about being poisoned and about needed to be investigated today, states does not trust hsuband to mortgage underwriter and to daughter however behaviors and presentation appropriate when on unit . (2) UTI (urinary tract infection) 06/26 - Start Bactrim DS S one tab twice a day 5 days, we will adjust pending sensitivity - Encourage fluids Risk Factors Assessment : No /single/: No Higher / Fall in social status: No Health problems: No Mental Health Diagnoses: No Substance use disorders: No Previous attempt: No Previous psychiatric stay: No Smoker: No Protective Factors Assessment Bahai beliefs: Yes : Yes Responsible for young children: No Employed: No Stable relationships: No Supportive family: Yes Day of Discharge Assessment COURSE OF HOSPITALIZATION: The patient has been on our unit for more than 3 days. She was admitted on an involuntary commitment after flagging down someone in a parking lot to report that her GPS is been tampered with and her was poisoning her water. She was brought to the emergency room by police. The patient refused medications throughout her stay. She initially refused to allow contact with her but eventually relented and signed a release of information. He came to visit on the first day and she continued to voice paranoid statements feeling that he had manipulated information on the Internet and that he was having an affair with one of her cousins in [place]. He however did not want her to be in the hospital nor did he agree with medications and had wanted to take her home that very day. We informed him that we needed several days of observation before we can make any judgments about discharge. The patient's and their daughter visited over the weekend. To staff, she continued to voice paranoid ideation, refusing to eat hospital food, only that which was brought in by her family, and continuing to believe that her GPS been tampered with and that her was having an affair. I spoken with the patient's this morning. He says that by Thursday evening, last evening, she was not voicing any delusions or concerns. He says that she admitted to them that she had a "nervous breakdown" and that had made her thinking confused. He felt that she was getting back to baseline and he continued to want discharge and did not support the idea of medications. He has spoken with his boss and will be taking some time off from work in order to be with her. She was not reasonable when the social insurance administrator attempted to meet with them several days ago as she just continued to persistently arti anybody who would listen that her perceptions were correct and that her husbands were incorrect. Although there is another day and a half left on her involuntary commitment, neither the patient nor her family are in favor of ongoing involuntary commitment and their entire family is against the use of antipsychotic medications. We do believe that she would benefit from these as even today she continues to voice paranoid thoughts, misinterpreting stimuli in her environment that lead her to believe that her is having an affair and that information on the Internet is being manipulated. I have told her clearly that I am recommending she have follow-up with psychiatrist which she initially refuses but then agrees to that saying that she will do that with her so that she has somebody who can help her to convince him that he is wrong. She is worried about having any of this information in writing and repeatedly asks that things be documented in certain ways or not documented at all. I have been careful to repeatedly inform her that if she has fearful concerns in the future that she can come to the emergency room for assistance. She then becomes paranoid that her will be able to have her involuntarily committed by simply making a statement. I did attempt to give her reassurance that this is not the way the mental health procedures act works. Additionally, I remind her that her had nothing to do with her coming here and being committed as he didn't even know where she was. She remains paranoid that he somehow had contacted the police prior to events leading to her hospitalization in order to prime them that she should not be listen to. I again recommended to the patient that she try some antipsychotic medications which she again refuses and the supports her in this. DAY OF DISCHARGE ASSESSMENT: The patient remains paranoid today, insisting that her interpretations of events and objects is correct in that her is still trying to manipulate her. That having been said, please see above conversation, she is refusing medications, does not believe she needs to be here and that she is very different from everyone here. We do not believe as a team that there is any benefit and continuing to keep her here in view of the fact the family insists that she is getting back to baseline. We do have concerns that she will continue to escalate at which point she should be brought back to the emergency room and if admitted, consideration given to medications over objection at that time. Today she is casually and appropriately dressed and groomed. Gait and station are within normal limits. Eye contact is good. Affect is anxious. Speech is persistent, not pressured, but insisting that we listened to her distorted thinking. Her thoughts are paranoid but she continues to deny auditory or visual hallucinations. Her intelligence is estimated to be average. Recent and remote memory are intact per conversation. Insight and judgment are only minimally improved over admission. Laboratory Test 06/25/17 18:41 06/25/17 19:25 Urine Color YELLOW Urine Appearance CLEAR Urine pH 6.5 Urine Specific [place] 1.007 Urine Protein NEG Urine Glucose (UA) NEG Urine Ketones TRACE Urine Occult Blood 2+ Urine Nitrite NEG Urine Bilirubin NEG Urine Urobilinogen NEG Urine Leukocyte Esterase LARGE Urine WBC (Auto) >30 Urine RBC (Auto) 0-4 Urine Hyaline Casts (Auto) Urine Epithelial Cells (Auto) 0-5 Urine Bacteria (Auto) 1+ Urine Renal Epithelial Cells 0-5 Urine Test NEG Urine Synthetic Stimulants Pending Urine Opiates Screen NEG Urine Methadone, Qualitative NEG Urine Barbiturates NEG Urine Phencyclidine (PCP) Level NEG Ur Amphetamine/Methamphetamine NEG MDMA (Ecstasy) Screen NEG Urine Benzodiazepines Screen NEG Urine Cocaine Metabolite NEG Cannabinoids Comment Pending Urine Synthetic Cannabinoids Pending Ur Synthetic Cannabinoids Confirm Pending Urine Marijuana (THC) NEG White Blood Count 9.25 Red Blood Count 4.79 Hemoglobin 13.2 Hematocrit 39.3 Mean Corpuscular Volume 82.0 Mean Corpuscular Hemoglobin 27.6 Mean Corpuscular Hemoglobin Concent 33.6 Platelet Count 277 Mean Platelet Volume 10.2 Neutrophils (%) (Auto) 69.4 Lymphocytes (%) (Auto) 23.9 Monocytes (%) (Auto) 6.3 Eosinophils (%) (Auto) 0.1 Basophils (%) (Auto) 0.1 Neutrophils # (Auto) 6.42 Lymphocytes # (Auto) 2.21 Monocytes # (Auto) 0.58 Eosinophils # (Auto) 0.01 Basophils # (Auto) 0.01 RDW Standard Deviation 39.2 RDW Coefficient of Variation 13.0 Immature Granulocyte % (Auto) 0.2 Immature Granulocyte # (Auto) 0.02 Sodium Level 140 Potassium Level 3.2 Chloride Level 107 Carbon Dioxide Level 24 Anion Gap 9.0 Blood Urea Nitrogen 12 Creatinine 0.79 Est Creatinine Clear Calc Drug Dose 80.1 Estimated GFR () 104.0 Estimated GFR (Non- 89.8 BUN/Creatinine Ratio 14.8 Random Glucose 95 Calcium Level 9.6 Total Bilirubin 0.5 Aspartate Amino Transferase (AST) 32 Alanine Aminotransferase (ALT) 31 Alkaline Phosphatase 68 Total Protein 7.9 Albumin 4.0 Globulin 3.9 Albumin/Globulin Ratio 1.0 Thyroid Stimulating Hormone (TSH) 0.763 Salicylates Level < 1.7 Acetaminophen Level < 2 Ethyl Alcohol mg/dL < 3.0 Total Time Total Time Spent (min): Greater than 30 minutes Total Time Included: examination of the patient, discharge planning, medication reconciliation, communication with other providers Tobacco Cessation at Discharge Smoking Status: Never Smoker FDA approved Prescription: non-smoker
[2017-06-29] MEDS ORDERED: SULF-183 PO (11:53)
[2017-07-03 00:30] LABS: SYNTHETIC CANNABINOIDS QL URIN NEGATIVE (Negative)
== END 2017-06-29 12:40 | disposition home or self-care (01) | DRG 885 ==
LOC: EDBD 18:17 → C.EDA 18:19 → C.MHU 06-26 00:11
PROVIDERS: ADMIT Psychiatry & Neurology Psychiatry; ATTEND Psychiatry & Neurology Psychiatry
DX: F29 Unspecified psychosis not due to a substance or known physiological condition (principal); N39.0 Urinary tract infection, site not specified